=== PATIENT | female | born 1960 | race American Indian/Alaskan Native ===

== ENCOUNTER 2018-04-09 09:05 | Day surgery (SDC) | payer MEDICARE ==
[2018-04-09] MEDS ORDERED: NACL 0.9% 1000 ML 1,000 ML ONE (09:48)
[2018-04-09] MEDS ORDERED: NACL 0.9% 1000 ML 1,000 ML IV SCH (10:30)
[2018-04-09] MEDS ORDERED: DIPRIVAN 10 MG/ML IV ONE (11:40)
--- NOTE | 2018-04-09 11:41 | Anesthesia Consultation ---
Anesthesia Consult and Med Hx Date of service: 04/09/18 - Airway Anesthetic Teeth Evaluation: Poor (missing teeth in the bottom), Edentulous ( upper) ROM Head & Neck: Adequate Mental/Hyoid Distance: Adequate Mallampati Class: Class III Intubation Access Assessment: Possibly Difficult - Pre-Operative Health Status ASA Pre-Surgery Classification: ASA3 Proposed Anesthetic Plan: MAC - Pulmonary Hx Sleep Apnea: Yes (CPAP) - Cardiovascular System Hx Hypertension: Yes - Central Nervous System Hx Psychiatric Problems: Yes (narcolepsy) - Gastrointestinal Hx Gastroesophageal Reflux Disease: Yes - Endocrine Hx Non-Insulin Dependent Diabetes: Yes (no meds) - Other Systems Hx Obesity: Yes (BMI 37.4)
--- NOTE | 2018-04-09 11:41 | Anesthesia Day of Surgery ---
Anesthesia Day of Surgery - Day of Surgery Patient Examined: Yes Patient H&P Reviewed: Yes Patient is NPO: Yes
[2018-04-09] MEDS ORDERED: HURRICAINE ONE 20% TOPICAL SPRAY MM (12:08)
--- NOTE | 2018-04-09 12:16 | Operative Report ---
Operative Report Operative Report: OPERATIVE REPORT - EGD DATE 04/09/18 SURGERY: Upper endoscopy. SURGEON: Dr. Cai IV TECHNICIAN:Emmanuel Isbell D.O PRE OP DX: Dyspepsia POST OP DX: Moderate hiatal hernia 2. duodenal ulcer TYPE OF ANESTHESIA: MAC. ESTIMATED BLOOD LOSS: None. COMPLICATIONS: None. SPECIMENS REMOVED: None. FINDINGS: 1. 2cm hiatal hernia 2. Otherwise, normal esophagus, stomach. 3. Small duodenal ulcer in first portion INDICATIONS:INDICATION FOR PROCEDURE: Patient is a 57 year-old female with a long history of morbid obesity. She is planned to have a weight loss procedure and is here for preoperative planning EGD. She has a long hx of GERD PROCEDURE DETAILS: After consent was reviewed, patient was taken back to the operating room where patient was placed in the left lateral decubitus position and a bite block was placed in the mouth. After a time-out was called, MAC anesthesia was initiated. I then passed the endoscope into her oropharynx, into her esophagus, visualized the entire esophagus, which was all within normal limits. The GE junctino was at 34cm and the hiatus was at 36cm. I then visualized the stomach and the first portion of the duodenum. There is a small duodenal ulcer- no vessel, no bleeding, approx 1cm. I then retroflexed the scope in the stomach and visualized the hiatus and I could see the hiatal hernia. I then desufflated the stomach and removed the endoscope. Patient tolerated procedure well and was transferred to recovery room in good and stable condition.She will be started on omeprazole
--- NOTE | 2018-04-09 12:18 | Discharge Summary ---
Providers - Providers Attending physician: DEENA SCHNEIDER Primary care physician: JOSE HASSAN MD Hospitalization Procedures: egd Hospital course: Pt presented for EGD. She tolerated the procedure well. Disposition: - TO HOME OR SELFCARE Core Measure Documentation - Palliative Care Palliative Care/ Comfort Measures: Not Applicable - Core Measures Any of the following diagnoses?: none Exam - Physical Exam Narrative exam: no change from prior - Constitutional Vitals: Temp Pulse Resp BP Pulse Ox 97.8 F 73 20 138/78 98 04/09/18 10:11 04/09/18 10:11 04/09/18 10:11 04/09/18 10:11 04/09/18 10:11 Plan Additional Instructions: Prescription for omprezole will be sent to your pharmacy since you have a duodenal ulcer. Follow up with: JOSE HASSAN MD [Primary Care Provider] - 7 Days
[2018-04-09 12:55] VITALS: BP 159/98
[2018-04-09] MEDS ORDERED: HURRICAINE ONE 20% TOPICAL SPRAY MM NR (18:00)
== END 2018-04-09 09:06 | disposition home or self-care (01) ==
LOC: GIO 09:05
PROVIDERS: ATTEND Specialist
DX: K26.9 Duodenal ulcer, unspecified as acute or chronic, without hemorrhage or perforation (principal); K44.9 Diaphragmatic hernia without obstruction or gangrene; K21.9 Gastro-esophageal reflux disease without esophagitis; E11.9 Type 2 diabetes mellitus without complications; I10 Essential (primary) hypertension; G47.30 Sleep apnea, unspecified; G47.429 Narcolepsy in conditions classified elsewhere without cataplexy; Z90.710 Acquired absence of both cervix and uterus; Z98.890 Other specified postprocedural states; Z88.8 Allergy status to other drugs, medicaments and biological substances; Z68.37 Body mass index [BMI] 37.0-37.9, adult; Z99.89 Dependence on other enabling machines and devices
CPT/HCPCS: 43235; 82962; J2704; J7030